=== PATIENT | female | born 1980 | race Caucasian/White ===

== ENCOUNTER 2024-01-15 15:07 | Emergency (ER) | payer BC ==
[~2024-01-15] VITALS: Ht 177.8 cm; Wt 73.5 kg
[2024-01-15 16:18] VITALS: BP 131/77; O2SAT 97
== END 2024-01-15 16:23 | disposition home or self-care (01) ==
LOC: ER 15:19
DX: I83.892 Varicose veins of left lower extremity with other complications (principal)
CPT/HCPCS: A4606; A4663